=== PATIENT | male | born 1990 | race Caucasian/White ===

== ENCOUNTER 2017-04-05 10:31 | Emergency (ER) | payer SELFPAY ==
[2017-04-05] MEDS ORDERED: Bupivacaine 0.5% 10 ML VIAL ONE (10:54)
[2017-04-05] MEDS ORDERED: Rabies Vaccine Human 2.5 UNITS VIAL ONE (11:08)
[2017-04-05] MEDS ORDERED: Lidocaine 2% Jelly 5 ML TUBE ONE (11:09)
== END 2017-04-05 12:22 | disposition home or self-care (01) ==
LOC: NAV ERS 10:31
DX: S01.511A Laceration without foreign body of lip, initial encounter (principal); S01.21XA Laceration without foreign body of nose, initial encounter; F17.210 Nicotine dependence, cigarettes, uncomplicated; W54.0XXA Bitten by dog, initial encounter
CPT/HCPCS: 40654; 90375; 90471; 90675; 96372; J3490

== ENCOUNTER 2018-07-21 10:10 | Emergency (ER) | payer BC, SELFPAY ==
[2018-07-21] MEDS ORDERED: Ketorolac Tromethamine 60 MG/2 ML VIAL ONE (11:00)
--- NOTE | 2018-07-21 13:05 | CT ---
CT THORACIC SPINE WITHOUT CONTRAST: HISTORY: Back pain and pain in the legs for three weeks. COMPARISON: None. TECHNIQUE: Multiple contiguous axial images were obtained in a CT of the thoracic spine without contrast. Sagit fredi and coronal reformats were performed. FINDINGS: The vertebral bodies and intervertebral disks of the thoracic spine show normal height and alignment without fracture or subluxation. No degenerative changes are seen. No bony narrowing of the neural foramina or central canal is seen throughout the thoracic spine. No posterior facet arthrosis is present. The prevertebral and paraspinal soft tissues are unremarkable. IMPRESSION: No significant thoracic spine CT abnormality. POS: [facility]
--- NOTE | 2018-07-21 13:10 | CT ---
CT LUMBAR SPINE WITHOUT CONTRAST: INDICATIONS: History of low back pain and tingling within the legs for three weeks. COMPARISON: None. FINDINGS: No acute fracture or subluxation is evident. No pars defects are noted. Spinal alignment is preserv ed. Intervertebral disk space height and vertebral body height are within normal limits. 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 The SI joints appear within normal limits. No hemant reciable osseous central canal or neural foraminal narrowing is demonstrated. Retroperitoneum appear s within normal limits. IMPRESSION: No acute osseous abnormality. POS: [facility]
== END 2018-07-21 12:00 | disposition home or self-care (01) ==
LOC: NAV ERS 10:10
DX: S39.012A Strain of muscle, fascia and tendon of lower back, initial encounter (principal); F17.210 Nicotine dependence, cigarettes, uncomplicated; X50.3XXA Overexertion from repetitive movements, initial encounter
CPT/HCPCS: 72128; 72131; 96372; J1885

== ENCOUNTER 2021-06-21 01:29 | Emergency (ER) | payer BC, OTHER ==
[2021-06-21 01:59] LABS: #Basophils 0.1 thou/uL (0.0-0.2); #Eosinphils 0.2 thou/uL (0.0-0.7); #Lymphocytes 2.3 thou/uL (1.20-3.40); #Monocytes 1.2 thou/uL (0.11-0.59); #Neutrophils 13.5 thou/uL (1.40-6.50); %Basophils 0.6 % (0.0-1.0); %Eosinophils 1.1 % (0.0-10.0); %Lymphocytes 13.4 % (21.0-51.0); Hemoglobin 15.9 g/dL (14.0-18.0); Mean Corpuscular HGB CONC 32.6 g/dL (32.0-36.0); Mean Corpuscular Volume 95.1 fL (78.0-98.0); Mean Platelet Volume 6.2 fL (7.4-10.4); Platelet Count 375 thou/uL (130-400); RBC Distribution Width 11.7 % (11.5-14.5); Red Blood Cell (RBC) Count 5.14 mill/uL (4.70-6.10); White Blood Cell (WBC) Count 17.4 thou/uL (4.8-10.8)
[2021-06-21 02:05] LABS: INR-International Normal Ratio 0.9; PTT 28.9 sec (22.9-36.1); Prothrombin Time 12.4 sec (12.0-14.7)
[2021-06-21 02:11] LABS: ALT (SGPT) 23 U/L (8-55); AST (SGOT) 19 U/L (5-34); Alcohol Less than 10 mg/dL (Less than 10); Alkaline Phosphatase 86 U/L (40-110); Anion Gap 13 mmol/L (10-20); BUN (Urea Nitrogen) 14 mg/dL (8.9-20.6); Bilirubin, Total 0.3 mg/dL (0.2-1.2); Calc. Creatinine Clearance 0 mL/min (70-130); Calcium 9.2 mg/dL (7.8-10.44); Carbon Dioxide 26 mmol/L (22-29); Chloride 101 mmol/L (98-107); Globulin 3.4 g/dL (2.4-3.5); Glucose 91 mg/dL (70-105); Protein, Total 7.4 g/dL (6.0-8.3); Sodium 136 mmol/L (136-145)
[2021-06-21] MEDS ORDERED: Sodium Chloride 0.9% 1,000 ML ONE (02:19)
[2021-06-21 03:18] LABS: Bilirubin Negative (Negative); Blood, Urine Negative (Negative); Clarity Clear (Clear); Glucose, Urine (Dipstick) Negative (Negative); Ketone, Urine Negative (Negative); Leukocyte Negative (Negative); Nitrite Negative (Negative); Protein, Urine (Dipstick) Negative (Neg-Trace); Specific Gravity, Urine 1.015 (1.005-1.030); Urobilinogen 0.2 mg/dL (Less than 2)
[2021-06-21] MEDS ORDERED: Bacitracin 1 PK ONE (03:32)
[2021-06-21] MEDS ORDERED: Acetaminophen 325 MG TAB ONE (03:42)
[2021-06-21] MEDS ORDERED: Ibuprofen 200 MG TAB ONE (03:42)
== END 2021-06-21 03:50 | disposition home or self-care (01) ==
LOC: NAV ERS 01:29
DX: S40.211A Abrasion of right shoulder, initial encounter (principal); S70.211A Abrasion, right hip, initial encounter; S50.311A Abrasion of right elbow, initial encounter; S50.811A Abrasion of right forearm, initial encounter; S60.811A Abrasion of right wrist, initial encounter; S60.511A Abrasion of right hand, initial encounter; S00.211A Abrasion of right eyelid and periocular area, initial encounter; I10 Essential (primary) hypertension; M50.323 Other cervical disc degeneration at C6-C7 level; Y90.0 Blood alcohol level of less than 20 mg/100 ml; V28.0XXA Motorcycle driver injured in noncollision transport accident in nontraffic accident, initial encounter; Y92.410 Unspecified street and highway as the place of occurrence of the external cause; F17.210 Nicotine dependence, cigarettes, uncomplicated
CPT/HCPCS: 70450; 70486; 71260; 72125; 74177; 80053; 80307; 81003; 83605; 85025; 85610; 85730; 94760; J7050

== ENCOUNTER 2021-06-25 15:36 | Emergency (ER) | payer OTHER, SELFPAY | END 2021-06-25 16:05 | disposition home or self-care (01) | LOC: NAV ERS 15:36 | DX: S16.1XXA Strain of muscle, fascia and tendon at neck level, initial encounter (principal); S40.819A Abrasion of unspecified upper arm, initial encounter; S80.211A Abrasion, right knee, initial encounter; F17.200 Nicotine dependence, unspecified, uncomplicated; V29.9XXA Motorcycle rider (driver) (passenger) injured in unspecified traffic accident, initial encounter | CPT/HCPCS: 99281 ==

== ENCOUNTER 2024-05-25 21:32 | Emergency (ER) | payer BC, SELFPAY ==
[2024-05-25] MEDS ORDERED: Ketorolac Tromethamine 30 MG (1 mL) VIAL ONE (22:32)
[2024-05-25] MEDS ORDERED: Sodium Chloride 0.9% 1,000 ML ONE (22:32)
[2024-05-25] MEDS ORDERED: Pantoprazole 40 MG VIAL ONE (22:32)
[2024-05-25 22:33] LABS: #Basophils 0.1 thou/uL (0.0-0.2); #Eosinphils 0.1 thou/uL (0.0-0.7); #Lymphocytes 1.1 thou/uL (1.20-3.40); #Monocytes 0.8 thou/uL (0.11-0.59); %Basophils 0.8 % (0.0-1.0); %Eosinophils 1.1 % (0.0-10.0); %Lymphocytes 10.9 % (21.0-51.0); %Monocytes 8.2 % (0.0-10.0); Hematocrit 46.3 % (42.0-52.0); Hemoglobin 15.3 g/dL (14.0-18.0); Mean Corpuscular HGB CONC 33.1 g/dL (32.0-36.0); Mean Corpuscular Hemoglobin 29.5 pg (27.0-31.0); Mean Corpuscular Volume 89.1 fl (78.0-98.0); Platelet Count 265 10x3/uL (130-400); RBC Distribution Width 11.2 % (11.5-14.5); Red Blood Cell (RBC) Count 5.19 mill/uL (4.70-6.10); White Blood Cell (WBC) Count 10.1 10x3/uL (4.8-10.8)
[2024-05-25 22:39] LABS: Acetaminophen Less than 10 mcg/mL (Less than 10); Alcohol Less than 10.0 mg/dL (Less than 10); Lipase 21 U/L (8-78); Salicylate Less than 8.0 mg/dL (Less than 8.0)
[2024-05-25 22:41] LABS: ALT (SGPT) 21 U/L (8-55); AST (SGOT) 20 U/L (5-34); Albumin 3.9 g/dL (3.5-5.0); Alkaline Phosphatase 96 U/L (40-110); Anion Gap 15 mmol/L (10-20); BUN (Urea Nitrogen) 11 mg/dL (8.9-20.6); Bilirubin, Total 0.3 mg/dL (0.2-1.2); Calc. Creatinine Clearance 0 mL/min (70-130); Calcium 9.2 mg/dL (7.8-10.44); Carbon Dioxide 23 mmol/L (22-29); Chloride 101 mmol/L (98-107); Estimated GFR 103; Glucose 90 mg/dL (70-105); Potassium 3.8 mmol/L (3.5-5.1); Protein, Total 7.9 g/dL (6.0-8.3); Sodium 135 mmol/L (136-145)
== END 2024-05-25 23:15 | disposition short-term general hospital (02) ==
LOC: NAV ERS 21:32
DX: N50.812 Left testicular pain (principal); N50.811 Right testicular pain; R00.0 Tachycardia, unspecified; F17.210 Nicotine dependence, cigarettes, uncomplicated
CPT/HCPCS: 80053; 80307; 83690; 85025; 96374; 96375; J1885; J2470; J7030